=== PATIENT | female | born 1955 | race Caucasian/White ===

== ENCOUNTER 2021-08-28 08:25 | Emergency (ER) | payer OTHER ==
[~2021-08-28] VITALS: Ht 160 cm; Wt 70.3 kg
[2021-08-28 09:05] VITALS: BP 149/83
[2021-08-28 10:02] LABS: Urine Bacteria NONE SEEN /hpf (None Seen); Urine Blood Negative /uL (Negative); Urine Mucus FEW (None Seen); Urine Specific Gravity 1.027 (1.001-1.035); Urine WBC 1 /hpf (0 - 5)
[2021-08-28 10:07] LABS: Amphetamine Screen, Urine NEGATIVE (NEGATIVE); Barbiturate Scree,Urine NEGATIVE (NEGATIVE); Benzodiazephine Screen, Urine NEGATIVE (NEGATIVE); Cannabinoid Screen, Urine NEGATIVE (NEGATIVE); Cocaine Screen, Urine NEGATIVE (NEGATIVE); Opiate Scree,Urine NEGATIVE (NEGATIVE); Phencyclidine Screen, Urine NEGATIVE (NEGATIVE)
[2021-08-28 10:10] LABS: Basophils # (auto) 0.1 10 ^3/uL (0-0.2); Basophils % (auto) 0.8 % (0.0-2.0); Eosinophils # (auto) 0 10 ^3/uL (0-0.8); Eosinophils % (auto) 0.2 % (0.0-7.0); Hematocrit 40.9 % (36.0-46.0); Hemoglobin 14.2 g/dL (12.2-16.2); Lymphocytes # (auto) 1.4 10 ^3/uL (0.4-5.4); Lymphocytes % (auto) 20.4 % (10.0-50.0); Mean Corpuscular Hemoglobin 31.9 pg (28.0-32.0); Mean Corpuscular Hgb Conc. 34.7 g/dL (32.0-36.0); Mean Corpuscular Volume 91.7 fL (80.0-100.0); Monocytes # (auto) 0.6 10 ^3/uL (0-1.3); Monocytes % (auto) 8.3 % (0.0-12.0); Neutrophils % (auto) 70.3 % (37.0-80.0); Nucleated Red Blood Cells % 0.1 %; Red Blood Cells 4.46 10^6/uL (4.0-5.20); Red Cell Distribution Width 13.6 % (11.8-14.3)
[2021-08-28 10:19] LABS: Albumin 3.9 g/dL (3.4-5.0); Calcium 9.1 mg/dL (8.5-10.1); Magnesium 2.4 mg/dL (1.6-2.6); Potassium 3.7 mmol/L (3.5-5.1)
[2021-08-28 10:24] LABS: BUN/Creatinine Ratio 13.4; Bilirubin, Total 0.5 mg/dL (0.2-1.0); Total Protein 7.4 g/dL (6.4-8.2)
[2021-08-28 10:35] LABS: Acetaminophen < 2.0 ug/mL (10-30); Salicylate < 1.7 mg/dL (2.8-20.0)
[2021-08-28] MEDS ORDERED: ALPRAZolam 0.5 MG TAB PO ONE (11:00)
== END 2021-08-28 18:31 | disposition home or self-care (01) ==
LOC: ER 08:25
DX: F32.9 Major depressive disorder, single episode, unspecified (principal); F41.1 Generalized anxiety disorder; F43.0 Acute stress reaction; I10 Essential (primary) hypertension; Z87.39 Personal history of other diseases of the musculoskeletal system and connective tissue; Z90.710 Acquired absence of both cervix and uterus
CPT/HCPCS: 36415; 71046; 80053; 80307; 80329; 81001; 83735; 84443; 85025; 93005

== ENCOUNTER → 2021-11-05 | Outpatient (CLI) | payer OTHER | END | disposition home or self-care (01) | LOC: XYW 13:14 | PROVIDERS: ATTEND Internal Medicine | DX: R42 Dizziness and giddiness (principal) | CPT/HCPCS: 93306 ==

== ENCOUNTER → 2021-11-05 | Outpatient (CLI) | payer OTHER | END | disposition home or self-care (01) | LOC: LAB 10:06 | PROVIDERS: ATTEND Internal Medicine | DX: Z12.11 Encounter for screening for malignant neoplasm of colon (principal) | CPT/HCPCS: 82270 ==

== ENCOUNTER → 2021-11-07 | Outpatient (CLI) | payer OTHER | END | disposition home or self-care (01) | LOC: XY 09:21 | PROVIDERS: ATTEND Internal Medicine | DX: I77.89 Other specified disorders of arteries and arterioles (principal); R42 Dizziness and giddiness | CPT/HCPCS: 93886 ==

== ENCOUNTER → 2021-11-22 | Outpatient (CLI) | payer OTHER | END | disposition home or self-care (01) | LOC: LAB 09:43 | PROVIDERS: ATTEND Internal Medicine | DX: E78.5 Hyperlipidemia, unspecified (principal); M06.9 Rheumatoid arthritis, unspecified; G62.9 Polyneuropathy, unspecified | CPT/HCPCS: 36415; 83036; 84443 ==

== ENCOUNTER → 2023-05-25 | Outpatient (CLI) | payer OTHER ==
[2023-05-25 12:05] LABS: Erythrocyte Sedimentation Rate 8 mm/hr (0-20)
[2023-05-25 12:15] LABS: CRP High Sensitivity 0.11 mg/dL (<1.0)
== END | disposition home or self-care (01) ==
LOC: LAB 11:14
PROVIDERS: ATTEND Internal Medicine
DX: M06.9 Rheumatoid arthritis, unspecified (principal); E78.5 Hyperlipidemia, unspecified
CPT/HCPCS: 36415; 80061; 82550; 84443; 85652; 86141

== ENCOUNTER → 2023-05-25 | Outpatient (CLI) | payer OTHER | END | disposition home or self-care (01) | LOC: XYW 10:20 | PROVIDERS: ATTEND Internal Medicine | DX: R42 Dizziness and giddiness (principal); R25.1 Tremor, unspecified; I51.89 Other ill-defined heart diseases | CPT/HCPCS: 93306; 93886 ==

== ENCOUNTER 2024-07-15 19:34 | Emergency (ER) | payer OTHER ==
[~2024-07-15] VITALS: Ht 160 cm; Wt 77.2 kg
--- NOTE | 2024-07-15 19:46 | ED.PDOC ---
History of Present Illness HPI Comments 69-year-old female who came to emergency room via EMS for fall injury. Patient has history of rheumatoid arthritis, in has been having progressive weakness her legs for the past few weeks. Has been having recurrent falls recently. Fell again earlier today. Patient denies any pain at this time. States leg weakness has progressively worsened. Patient has not seen her crew attendant for over two years. Patient was tachycardic and tachypneic at arrival. Chief Complaint: Fall injury Time Seen by MD: 19:45 Primary Care Provider: none Reviewed Notes: Nurses Notes, [employer] Salesperson Notes Allergies: Coded Allergies: Penicillins (Verified Allergy, Unknown, 08/28/21) Information Source: Patient, Emergency Med Personnel Mode of Arrival: EMS Severity: Moderate Timing: Hours Duration: Since onset Prehospital treatment: None Past Medical History PAST MEDICAL HISTORY: Arthritis (Rheumatoid), HTN Surgical History: Hysterectomy FOOD BEVERAGE ATTENDANT History: No Pertinent FOOD BEVERAGE ATTENDANT History Family History Family History: Unknown Social History Smoker: Non-Smoker Alcohol: Denies ETOH Use Drugs: Denies Drug Use Lives In: Home Constitutional: reports: fatigue, weakness; denies: chills, diaphoresis, fever, malaise, sweats, others EENTM: denies: blurred vision, double vision, ear bleeding, ear discharge, ear drainage, ear pain, ear ringing, eye pain, eye redness, hearing loss, mouth pain, mouth swelling, nasal discharge, nose bleeding, nose congestion, nose pain, photophobia, tearing, throat pain, throat swelling, voice changes, others Respiratory: denies: cough, hemoptysis, orthopnea, SOB at rest, shortness of breath, SOB with excertion, stridor, wheezing, others Cardiovascular: denies: chest pain, dizzy spells, diaphoresis, Dyspnea on exertion, edema, irregular heart beat, left arm pain, lightheadedness, palpitations, PND, syncope, others Gastrointestinal: denies: abdomen distended, abdominal pain, blood streaked bowels, constipated, diarrhea, dysphagia, difficulty swallowing, hematemesis, melena, nausea, poor appetite, poor fluid intake, rectal bleeding, rectal pain, vomiting, others Genitourinary: denies: abnormal vagina bleeding, burning, dyspareunia, dysuria, flank pain, frequency, hematuria, incontinence, pain, , vagina discharge, urgency, others Neurological: reports: tremors, weakness; denies: dizziness, fainting, headache, left sided numbness, left sided weakness, numbness, paresthesia, pre- existing deficit, right sided numbness, right sided weakness, seizure, speech problems, tingling, others Musculoskeletal: denies: back pain, gout, joint pain, joint swelling, muscle pain, muscle stiffness, neck pain, others Integumetry: denies: bruises, change in color, change in hair/nails, dryness, laceration, lesions, lumps, rash, wounds, others Allergic/Immunocompromised: denies: Difficulty Healing, Frequent Infections, Hives, Itching, others Hematologic/Lymphatic: denies: anemia, blood clots, easy bleeding, easy bruising, swollen glands, others Endocrine: denies: excessive hunger, excessive sweating, excessive thirst, excessive urination, flushing, intolerance to cold, intolerance to heat, unexplained weight gain, unexplained weight loss, others Psychiatric: denies: anxiety, bipolar disorder, depression, hopeless, panic disorder, schizophrenia, sleepless, suicidal, others Physical Exam General Appearance: Moderate Distress (Moderate distress due to weakness concerns.), Obese HEENT: Normal ENT Inspection, Pharynx Normal, TMs Normal Neck: Full Range of Motion, Non-Tender, Normal, Normal Inspection Respiratory: Chest Non-Tender, Lungs Clear, No Accessory Muscle Use, No Respiratory Distress, Normal Breath Sounds Cardiovascular: No Edema, No JVD, No Murmur, No Gallop, Normal Peripheral Pulses, Regular Rate/Rhythm Breast Exam: Deferred Gastrointestinal: No Organomegaly, Non Tender, No Pulsatile Mass, Normal Bowel Sounds, Soft Genitalia: Deferred Pelvic: Deferred Rectal: Deferred Extremities: No calf tenderness, Normal capillary refill, Normal range of motion, Non-tender, No pedal edema Musculoskeletal : Apperance: Normal Neurologic: Alert, No Motor Deficits, Normal Affect, Normal Mood, No Sensory Deficits Cerebellar Function: Normal Reflexes: Normal Skin: Dry, Normal Color, Warm Lymphatic: No Adenopathy Was a procedure done? Was a procedure done?: No Differential Dx Considerations may include: Anemia, electrolyte imbalance, weakness, rheumatoid arthritis, fall injury X-Ray, Labs, Meds, VS Vital Signs Date Time Temp Pulse Resp B/P (MAP) Pulse Ox O2 Delivery O2 Flow Rate FiO2 07/15/24 21:19 100.0 1/10/25 21:00 108 22 142/67 (92) 95 07/15/24 20:30 100 07/15/24 20:15 100.0 102 22 161/75 (103) 100 100.0 07/15/24 20:15 100 22 94 Room Air* 0 21 07/15/24 20:02 106 07/15/24 19:34 99.1 121 22 143/75 (97) 94 Lab Test 07/15/24 21:52 07/15/24 21:15 07/15/24 19:55 Range/Units Lactic Acid Level 1.8 2.6 *H 0.4-2.0 mmol/L Urine Color Yellow Yellow Urine Clarity Clear Clear Urine pH 5.5 5.0-9.0 Urine Specific [place] 1.031 1.001-1.035 Urine Protein Trace H Negative Urine Ketones Negative Negative Urine Blood Negative Negative /uL Urine Nitrite Negative Negative Urine Bilirubin Negative Negative Urine Urobilinogen Normal Negative mg/dL Urine Leukocyte Esterase Negative Negative /uL Urine RBC 2 0 - 4 /hpf Urine WBC 4 0 - 5 /hpf Urine Squamous Epithelial Cells Few <5 /hpf Urine Bacteria None seen None Seen /hpf Urine Hyaline Casts Few 0 - 2 /lpf Urine Mucus Few None Seen Urine Glucose Normal Normal mg/dL White Blood Count 9.1 4.4-10.8 10^3/uL Red Blood Count 4.37 4.0-5.20 10^6/uL Hemoglobin 13.9 12.2-16.2 g/dL Hematocrit 40.1 36.0-46.0 % Mean Corpuscular Volume 91.7 80.0-100.0 fL Mean Corpuscular Hemoglobin 31.8 28.0-32.0 pg Mean Corpuscular Hemoglobin Concent 34.7 32.0-36.0 g/dL Red Cell Distribution Width 13.5 11.8-14.3 % Platelet Count 211 140-450 10^3/uL Mean Platelet Volume 8.2 6.9-10.8 fL Neutrophils (%) (Auto) 84.0 H 37.0-80.0 % Lymphocytes (%) (Auto) 4.1 L 10.0-50.0 % Monocytes (%) (Auto) 11.2 0.0-12.0 % Eosinophils (%) (Auto) 0.4 0.0-7.0 % Basophils (%) (Auto) 0.3 0.0-2.0 % Neutrophils # (Auto) 7.7 1.6-8.6 10 ^3/uL Lymphocytes # (Auto) 0.4 0.4-5.4 10 ^3/uL Monocytes # (Auto) 1.0 0-1.3 10 ^3/uL Eosinophils # (Auto) 0 0-0.8 10 ^3/uL Basophils # (Auto) 0 0-0.2 10 ^3/uL Nucleated Red Blood Cells 0.0 % Sodium Level 143 136-145 mmol/L Potassium Level 3.9 3.5-5.1 mmol/L Chloride Level 109 H 98-107 mmol/L Carbon Dioxide Level 24 20-31 mmol/L Anion Gap 10 5-15 Blood Urea Nitrogen 17 9-23 mg/dL Creatinine 1.01 0.550-1.02 mg/dL Glomerular Filtration Rate Calc 61 >90 mL/min BUN/Creatinine Ratio 16.8 10.0-20.0 Serum Glucose 126 H 74-106 mg/dL Calcium Level 9.3 8.7-10.4 mg/dL Total Bilirubin 0.4 0.2-1.0 mg/dL Aspartate Amino Transferase (AST) 33 13-40 U/L Alanine Aminotransferase (ALT) 39 7-40 U/L Alkaline Phosphatase 70 46-116 U/L Troponin I High Sensitivity 3 L </=34 ng/L Total Protein 6.5 5.7-8.2 g/dL Albumin 4.2 3.2-4.8 g/dL Current Medications Medications (Trade) Dose Ordered Sig/Jean Route Start Time Stop Time Status Last Admin Sodium Chloride 1,000 ml @ 1,000 mls/hr Q1H ONCE IV 07/15/24 21:00 07/15/24 21:59 DC 07/15/24 21:19 Acetaminophen (Tylenol Tablet) 1,000 mg ONCE ONCE PO 07/15/24 21:00 07/15/24 21:01 DC 07/15/24 21:19 X-Ray, Labs, Meds, VS Comment All studies performed the ED today were evaluated by me personally. Serum and urine results were unremarkable for any acute systemic process or Cardiology concern. EKG showed a sinus tachycardia with a rate of 106. [place] interval 149 and QT interval of 335. Unremarkable EKG. Spent time discussing the patient's concerns with her. Patient does live alone and therefore, I was contemplating0 admitting the patient for a transfer to a retirement facility0. Patient states that she has pets at home and therefore, would prefer being discharged and following up with her primary care provider. Advised patient that she does need to talk to her crew attendant this for assistance with her RA that seems to be causing weakness. Time of 1ST Reevaluation: 23:08 Reevaluation 1ST: Improved Consultation: PCP, Other (Rheumatology) Patient Education/Counseling: Diagnosis, Treatment Family Education/Counseling: Diagnosis, Treatment, No Family Present Departure 1 Departure Time of Disposition: 23:09 Impression: Primary Impression: Weakness generalized Disposition: 01 HOME / SELF CARE / HOMELESS Condition: Stable Additional Instructions: Advised patient follow up with primary care provider and crew attendant his for conversation is related to the weakness that the patient is experiencing what she believes is related to her rheumatoid arthritis. Discharged With: Self, Friend Critical Care Note Critical Care Time?: No Stability Stability form required: No Heart Score Heart Score: Heart Score Response (Comments) Value History Slightly Suspicious 0 EKG Normal 0 Age >65 2 Risk Factors 1 or 2 risk factors 1 Troponin Normal limit 0 Total 3 I personally scribed for CECI PAEZ PAC ([email or web address]) on 07/15/24 at 19:46. Electronically submitted by Dewayne Tellez ([facility]). CECI PAEZ PAC Jul 15, 2024 19:46
[2024-07-15 20:15] VITALS: PULSE 100; RESP 22; O2SAT 94
[2024-07-15 20:27] LABS: Basophils # (auto) 0 10 ^3/uL (0-0.2); Basophils % (auto) 0.3 % (0.0-2.0); Eosinophils # (auto) 0 10 ^3/uL (0-0.8); Eosinophils % (auto) 0.4 % (0.0-7.0); Hematocrit 40.1 % (36.0-46.0); Hemoglobin 13.9 g/dL (12.2-16.2); Lymphocytes # (auto) 0.4 10 ^3/uL (0.4-5.4); Lymphocytes % (auto) 4.1 % (10.0-50.0); Mean Corpuscular Hemoglobin 31.8 pg (28.0-32.0); Mean Corpuscular Hgb Conc. 34.7 g/dL (32.0-36.0); Mean Corpuscular Volume 91.7 fL (80.0-100.0); Monocytes % (auto) 11.2 % (0.0-12.0); Neutrophils # (auto) 7.7 10 ^3/uL (1.6-8.6); Platelet Count (auto) 211 10^3/uL (140-450); Red Blood Cells 4.37 10^6/uL (4.0-5.20); Red Cell Distribution Width 13.5 % (11.8-14.3); White Blood Cell 9.1 10^3/uL (4.4-10.8)
[2024-07-15 20:46] LABS: Alanine Aminotransferase 39 U/L (7-40); Albumin 4.2 g/dL (3.2-4.8); Alkaline Phosphatase 70 U/L (46-116); Anion Gap 10 (5-15); Aspartate Aminotransferase 33 U/L (13-40); BUN/Creatinine Ratio 16.8 (10.0-20.0); Blood Urea Nitrogen 17 mg/dL (9-23); Calcium 9.3 mg/dL (8.7-10.4); Carbon Dioxide 24 mmol/L (20-31); Potassium 3.9 mmol/L (3.5-5.1); Sodium 143 mmol/L (136-145)
[2024-07-15 20:47] LABS: Bilirubin, Total 0.4 mg/dL (0.2-1.0); Total Protein 6.5 g/dL (5.7-8.2)
--- NOTE | 2024-07-15 20:47 | ECG ---
[facility] Test Date: 2024-07-15 Test Time: 20:02:52 Pat Name: CLARISA DOWNING Department: ER Room: Gender: F Employee Benefits Director: : 1955 Requested By: CECI PAEZ Order Number: [id number] Reading MD: Ezekiel Nguyen Measurements Intervals [place] Rate: 106 P: 67 MA: 149 QRS: 57 QRSD: 97 T: 35 QT: 335 QTc: 445 Interpretive Statements Sinus tachycardia Electronically Signed On 07-24-2024 14:31:26 PST by Ezekiel Nguyen Please click the below link to view image of tracing.
[2024-07-15 20:49] LABS: Lactic Acid w/Reflex 2.6 mmol/L (0.4-2.0)
[2024-07-15 20:52] LABS: Chloride 109 mmol/L (98-107); Glucose 126 mg/dL (74-106)
[2024-07-15 21:19] VITALS: TEMP 100
[2024-07-15] MEDS: ACETAMINOPHEN 325 MG TAB PO ONE (21:19)
[2024-07-15] MEDS: SODIUM CHLORIDE 0.9% 1,000 ML IV ONE (21:19)
[2024-07-15 21:29] LABS: Urine Bacteria None Seen /hpf (None Seen)
[2024-07-15 21:41] LABS: Urine Blood Negative /uL (Negative); Urine Clarity Clear (Clear); Urine Color Yellow (Yellow); Urine Hyaline Cast FEW /lpf (0 - 2); Urine Mucus FEW (None Seen); Urine Protein, UAD TRACE (Negative); Urine Specific Gravity 1.031 (1.001-1.035); Urine Squamous Epithelial Cell FEW /hpf (<5); Urine Urobilinogen Normal (Negative); Urine WBC 4 /hpf (0 - 5); Urine pH 5.5 (5.0-9.0)
[2024-07-15 23:17] VITALS: BP 131/65; PULSE 93; RESP 15; O2SAT 93
== END 2024-07-15 23:42 | disposition home or self-care (01) ==
LOC: EDBD 19:34 → ER 19:34 → EDUNIT# 19:34 → ER 23:42
DX: R53.1 Weakness (principal); I10 Essential (primary) hypertension; M06.9 Rheumatoid arthritis, unspecified; Z88.0 Allergy status to penicillin; Z90.710 Acquired absence of both cervix and uterus; W18.09XA Striking against other object with subsequent fall, initial encounter; Y93.89 Activity, other specified; Y92.89 Other specified places as the place of occurrence of the external cause; Y99.8 Other external cause status
CPT/HCPCS: 36415; 80053; 81001; 83605; 84484; 85025; 93005; 96360; 99285; J7030

== ENCOUNTER 2024-07-16 16:08 | Inpatient (IN) | payer OTHER ==
[~2024-07-16] VITALS: Ht 160 cm; Wt 86.9 kg
[2024-07-16] MEDS: SODIUM CHLORIDE 0.9% 1,000 ML IV ONE (16:30)
--- NOTE | 2024-07-16 16:51 | ED.PDOC ---
History of Present Illness HPI Comments This patient was seen by me yesterday for same complaints. Patient did not want to be admitted at that time due to PET concerns at home as she did not have any assistance. 69 y/o F is BIBA for c/o bilateral leg weakness, today. Per EMS report, patient has history of rheumatoid arthritis and has been having progressive weakness in her legs for the past few weeks, with associated recurrent falls, recently. States leg weakness has progressively worsened. Patient has not seen her outreach manager for over two years. Patient also complains of flu-like symptoms, that include cough and pressure-like headache and facial pain for the past 3-4x days. Patient was tachycardic and hypertensive at arrival to ED. Patient lives alone. Chief Complaint: General Weakness Time Seen by MD: 16:20 Primary Care Provider: SHILPA Reviewed Notes: Nurses Notes, Costume Cutter Notes, Medications, Allergies Allergies: Coded Allergies: Penicillins (Verified Allergy, Unknown, 08/28/21) Information Source: Patient, Emergency Med Personnel Mode of Arrival: EMS Severity: Moderate Timing: Days Duration: Since onset Prehospital treatment: 12 Lead EKG, Retail Assistant Manager Past Medical History PAST MEDICAL HISTORY: Arthritis, HTN Past Medical History (Other): Rheumatoid arthritis Surgical History: Hysterectomy COMMUNITY RELATIONS ADVISOR History: No Pertinent COMMUNITY RELATIONS ADVISOR History Family History Family History: Unknown Social History Smoker: Non-Smoker Alcohol: Denies ETOH Use Drugs: Denies Drug Use Lives In: Home Constitutional: reports: fatigue, malaise, weakness; denies: chills, bryson phoresis, fever, sweats, others EENTM: reports: others (facial pain ); denies: blurred vision, double vision, ear bleeding, ear discharge, ear drainage, ear pain, ear ringing, eye pain, eye redness, hearing loss, mouth pain, mouth swelling, nasal discharge, nose bleeding, nose congestion, nose pain, photophobia, tearing, throat pain, throat swelling, voice changes Respiratory: reports: cough; denies: hemoptysis, orthopnea, SOB at rest, shortness of breath, SOB with excertion, stridor, wheezing, others Cardiovascular: denies: chest pain, dizzy spells, diaphoresis, Dyspnea on exertion, edema, irregular heart beat, left arm pain, lightheadedness, palpitat ions, PND, syncope, others Gastrointestinal: denies: abdomen distended, abdominal pain, blood streaked bow els, constipated, diarrhea, dysphagia, difficulty swallowing, hematemesis, melena, nausea, poor appetite, poor fluid intake, rectal bleeding, rectal pain, vomiting, others Genitourinary: denies: abnormal vagina bleeding, burning, dyspareunia, dysuria, flank pain, frequency, hematuria, incontinence, pain, , vagina discharge, urgency, others Neurological: reports: headache, weakness (bilateral legs ); denies: dizziness, fainting, left sided numbness, left sided weakness, numbness, paresthesia, pre- existing deficit, right sided numbness, right sided weakness, seizure, speech problems, tingling, tremors, others Musculoskeletal: denies: back pain, gout, joint pain, joint swelling, muscle pain, muscle stiffness, neck pain, others Integumetry: denies: bruises, change in color, change in hair/nails, dryness, laceration, lesions, lumps, rash, wounds, others Allergic/Immunocompromised: denies: Difficulty Healing, Frequent Infections, Hives, Itching, others Hematologic/Lymphatic: denies: anemia, blood clots, easy bleeding, easy bruising, swollen glands, others Endocrine: denies: excessive hunger, excessive sweating, excessive thirst, excessive urination, flushing, intolerance to cold, intolerance to heat, unexplained weight gain, unexplained weight loss, others Psychiatric: denies: anxiety, bipolar disorder, depression, hopeless, panic disorder, schizophrenia, sleepless, suicidal, others All Other Systems: Reviewed and Negative (negative unless otherwise stated above or in HPI) Physical Exam General Appearance: Moderate Distress (Due to generalized weakness concerns.), Normal HEENT: Normal ENT Inspection, Pharynx Normal, TMs Normal Neck: Full Range of Motion, Non-Tender, Normal, Normal Inspection Respiratory: Chest Non-Tender, Lungs Clear, No Accessory Muscle Use, No Respiratory Distress, Normal Breath Sounds Cardiovascular: No Edema, No JVD, No Murmur, No Gallop, Normal Peripheral Pulses, Regular Rate/Rhythm Breast Exam: Deferred Gastrointestinal: No Organomegaly, Non Tender, No Pulsatile Mass, Normal Bowel Sounds, Soft Genitalia: Deferred Pelvic: Deferred Rectal: Deferred Extremities: No calf tenderness, Normal capillary refill, No pedal edema Neurologic: Alert, Normal Affect Cerebellar Function: Normal Reflexes: NOT DONE Skin: Dry, Normal Color, Warm Lymphatic: No Adenopathy Was a procedure done? Was a procedure done?: No Differential Dx Considerations may include: Anemia, electrolyte imbalance, weakness, rheumatoid arthritis, fall injury X-Ray, Labs, Meds, VS Vital Signs Date Time Temp Pulse Resp B/P (MAP) Pulse Ox O2 Delivery O2 Flow Rate FiO2 07/16/24 16:27 98.7 90 14 141/91 (108) 95 07/16/24 16:21 84 Lab Test 07/16/24 16:18 Range/Units White Blood Count 7.1 4.4-10.8 10^3/uL Red Blood Count 4.65 4.0-5.20 10^6/uL Hemoglobin 14.5 12.2-16.2 g/dL Hematocrit 42.5 36.0-46.0 % Mean Corpuscular Volume 91.4 80.0-100.0 fL Mean Corpuscular Hemoglobin 31.2 28.0-32.0 pg Mean Corpuscular Hemoglobin Concent 34.2 32.0-36.0 g/dL Red Cell Distribution Width 13.9 11.8-14.3 % Platelet Count 203 140-450 10^3/uL Mean Platelet Volume 8.2 6.9-10.8 fL Neutrophils (%) (Auto) 71.5 37.0-80.0 % Lymphocytes (%) (Auto) 12.5 10.0-50.0 % Monocytes (%) (Auto) 15.5 H 0.0-12.0 % Eosinophils (%) (Auto) 0.0 0.0-7.0 % Basophils (%) (Auto) 0.5 0.0-2.0 % Neutrophils # (Auto) 5.0 1.6-8.6 10 ^3/uL Lymphocytes # (Auto) 0.9 0.4-5.4 10 ^3/uL Monocytes # (Auto) 1.1 0-1.3 10 ^3/uL Eosinophils # (Auto) 0 0-0.8 10 ^3/uL Basophils # (Auto) 0 0-0.2 10 ^3/uL Nucleated Red Blood Cells 0.1 % Sodium Level 142 136-145 mmol/L Potassium Level 3.7 3.5-5.1 mmol/L Chloride Level 108 H 98-107 mmol/L Carbon Dioxide Level 25 20-31 mmol/L Anion Gap 9 5-15 Blood Urea Nitrogen 10 9-23 mg/dL Creatinine 0.99 0.550-1.02 mg/dL Glomerular Filtration Rate Calc 62 >90 mL/min BUN/Creatinine Ratio 10.1 10.0-20.0 Serum Glucose 98 74-106 mg/dL Calcium Level 9.7 8.7-10.4 mg/dL Troponin I High Sensitivity 36 *H </=34 ng/L B-Type Natriuretic Peptide 77.44 0-100 pg/mL X-Ray, Labs, Meds, VS Comment All studies performed the ED were evaluated by me personally. Urinalysis was pending at time of this note. Imaging studies were unremarkable for any intrapulmonary process. No consolidation is noted. Serum laboratories were unremarkable for any definitive systemic processes. EKG revealed a sinus rhythm with a rate of 84. [place] interval of 153 and QT intervals 363. 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 Patient will be admitted for general weakness and fall concerns. Patient should be transferred to a retirement facility for rehab. Time of 1ST Reevaluation: 21:46 Reevaluation 1ST: Unchanged Consultation: PCP, Other (Rheumatology) Patient Education/Counseling: Diagnosis, Treatment Family Education/Counseling: Diagnosis, Treatment, No Family Present Departure 1 Departure Time of Disposition: 21:47 Impression: Primary Impression: Weakness generalized Additional Impression: Risk for falls Disposition: ADMITTED INPATIENT Condition: Stable Discharged With: Self Critical Care Note Critical Care Time?: No Stability Stability form required: No Heart Score Heart Score: Heart Score Response (Comments) Value History Slightly Suspicious 0 EKG Normal 0 Age >65 2 Risk Factors 1 or 2 risk factors 1 Troponin 1-2 x's Normal limit 1 Total 4 I personally scribed for CECI PAEZ PAC ([email or web address]) on 07/16/24 at 16:51. Electronically submitted by Dane Avalos ([email or web address]). CECI PAEZ PAC Jul 16, 2024 16:51
[2024-07-16 17:09] LABS: Basophils # (auto) 0 10 ^3/uL (0-0.2); Basophils % (auto) 0.5 % (0.0-2.0); Eosinophils # (auto) 0 10 ^3/uL (0-0.8); Hematocrit 42.5 % (36.0-46.0); Hemoglobin 14.5 g/dL (12.2-16.2); Lymphocytes # (auto) 0.9 10 ^3/uL (0.4-5.4); Lymphocytes % (auto) 12.5 % (10.0-50.0); Mean Corpuscular Hemoglobin 31.2 pg (28.0-32.0); Mean Corpuscular Hgb Conc. 34.2 g/dL (32.0-36.0); Mean Corpuscular Volume 91.4 fL (80.0-100.0); Monocytes # (auto) 1.1 10 ^3/uL (0-1.3); Monocytes % (auto) 15.5 % (0.0-12.0); Neutrophils % (auto) 71.5 % (37.0-80.0); Nucleated Red Blood Cells % 0.1 %; Platelet Count (auto) 203 10^3/uL (140-450); Red Blood Cells 4.65 10^6/uL (4.0-5.20); Red Cell Distribution Width 13.9 % (11.8-14.3); White Blood Cell 7.1 10^3/uL (4.4-10.8)
[2024-07-16 17:18] LABS: Potassium 3.7 mmol/L (3.5-5.1); Sodium 142 mmol/L (136-145)
[2024-07-16 17:19] LABS: Anion Gap 9 (5-15); Calcium 9.7 mg/dL (8.7-10.4); Carbon Dioxide 25 mmol/L (20-31)
[2024-07-16 17:21] LABS: Chloride 108 mmol/L (98-107)
[2024-07-16 17:24] LABS: BUN/Creatinine Ratio 10.1 (10.0-20.0); Blood Urea Nitrogen 10 mg/dL (9-23); Glucose 98 mg/dL (74-106)
--- NOTE | 2024-07-16 17:34 | DVH ---
CHEST RADIOGRAPH Indication: Shortness a breath Technique: Single frontal view of the chest was obtained Comparison: None FINDINGS: Lines and Tubes: None Lungs: No focal consolidation. Pleura: No effusion. No pneumothorax. Cardiomediastinal contours: Unremarkable Bones: No acute osseous abnormality. IMPRESSION: No acute cardiopulmonary disease.
--- NOTE | 2024-07-16 20:50 | ECG ---
[facility] Test Date: 2024-07-16 Test Time: 16:21:32 Pat Name: CLARISA DOWNING Department: er Room: Gender: F Lap Machine Tender: adrián : 1955 Requested By: CECI PAEZ Order Number: [id number] Reading MD: Measurements Intervals [place] Rate: 84 P: 62 IN: 153 QRS: 61 QRSD: 93 T: 32 QT: 363 QTc: 430 Interpretive Statements Sinus rhythm Inferior infarct, old Please click the below link to view image of tracing.
[2024-07-16] MEDS ORDERED: ACETAMINOPHEN 325 MG TAB PO PRN (23:00)
[2024-07-16] MEDS ORDERED: ONDANSETRON HCL 4 MG/2 ML VIAL IV PRN (23:00)
[2024-07-16] MEDS ORDERED: DOCUSATE SOD 100 MG CAP PO PRN (23:00)
[2024-07-16] MEDS ORDERED: MORPHINE SULFATE INJ 2 MG/ml SYRG IV PRN (23:00)
[2024-07-16] MEDS: SODIUM CHLORIDE 0.9% 1,000 ML IV SCH (23:00)
[2024-07-17] MEDS: ASPirin 81 mg TAB PO ONE (00:19)
--- NOTE | 2024-07-17 01:35 | DVHHP2 ---
History of Present Illness Reason for Visit: Weakness generalized History of Present Illness The patient is a 69-year-old female with past medical history of rheumatoid arthritis and hypertension who presented to [facility] ED for evaluation of generalized weakness. Patient reports symptoms progressively get worse with flu-like symptoms, facial pain, headache, cough, progressive weakness in her legs, getting worse that prompted this visit. Patient was seen and evaluated in the ED, laboratory data shows WBC 7.1, platelets 203, sodium 142, potassium 3.7, BUN 10, creatinine 0.99, GFR 62, glucose 98, BNP 77.44, troponin 36. Chest x-ray show no acute cardiopulmonary disease. Patient was given aspirin 162 mg p.o. x1, please see medication orders section in the computer. On my assessment, patient denies chest pain, no headache, no dizziness, no diaphoresis, no shortness of breaths, no nausea, no vomiting, no fever, no chills. Patient was admitted for further evaluation and medical management. Past Medical History Hypertension, Rheumatoid arthritis Past Surgical History Hysterectomy Family History Reviewed, noncontributory to the management of this case. Past Social History The patient lives at home, denies smoking, alcohol or illicit drugs abuse. Review of Systems Constitutional: Yes: Weakness, Malaise, Other (Fatigue); No: Fever, Chills, Sweats Eyes: No: Pain, Vision change, Conjunctivae inflammation, Eyelid inflammation, Other, Redness ENT: No: Ear pain, Ear discharge, Nose pain, Nose discharge, Nose congestion, Mouth pain, Mouth swelling, Throat pain, Throat swelling, Other Respiratory: Cough; No: Dry, Shortness of breath, SOB with excertion, Wheezing, Hemoptysis, Pleuritic Pain, Sputum, Wheezing, Other Cardiovascular: No: Chest Pain, Palpitations, Orthopnea, Paroxysmal Noc. Dyspnea, Edema, Lt Headedness, Other Gastrointestinal: No: Nausea, Vomiting, Abdominal Pain, Diarrhea, Constipation, Melena, Hematochezia, Other Genitourinary: No Dysuria, No Frequency, No Incontinence, No Hematuria, No Retention, No Other Musculoskeletal: No: other, neck pain, shoulder pain, arm pain, back pain, hand pain, leg pain, foot pain Skin: No: Rash, Lesions, Jaundice, Bruising, Other Neurological: Weakness, Other (Dizziness); No: Numbness, Incoordination, Change in speech, Confusion, Seizures Allergies: Coded Allergies: Penicillins (Verified Allergy, Unknown, 08/28/21) Medications Current Medications Medications Dose Ordered Sig/Jean Route Start Time Stop Time Status Last Admin Dose Admin Aspirin 81 mg DAILY PO 07/17/24 10:00 Sodium Chloride 1,000 ml @ 60 mls/hr [id number] IV 07/16/24 23:00 Acetaminophen/ Hydrocodone Bitart 1 tab Q4HP PRN PO 07/16/24 23:00 Ondansetron HCl 4 mg Q4HP PRN IV 07/16/24 23:00 Docusate Sodium 100 mg BIDPRN PRN PO 07/16/24 23:00 Acetaminophen 650 mg Q6HP PRN PO 07/16/24 23:00 Morphine Sulfate 2 mg Q4HPRN PRN IV 07/16/24 23:00 Exam Vital Signs Vital Signs Date Time Temp Pulse Resp B/P (MAP) Pulse Ox O2 Delivery O2 Flow Rate FiO2 07/17/24 00:14 98.9 99 20 158/69 (98) 92 98.9 07/17/24 00:14 Room Air General Appearance: Alert, Oriented X3, Cooperative, No acute distress HEENT: Atraumatic, PERRLA, EOMI, Mucous membr. moist/pink Respiratory: Clear to auscultation, Normal air movement Cardiovascular: Regular rate, Normal S1, Normal S2, No murmurs Abdominal: Normal bowel sounds, Soft, No tenderness, No hepatospenomegaly, No masses Extremities: No clubbing, No cyanosis, No edema, Normal pulses, No tenderness/swelling Skin: No rashes, No breakdown, No significant lesion Neuro: Normal speech, Normal tone, Sensation intact, Cranial nerves 3-12 NL, Reflexes 2+, Other (Generalized weakness) Psych/Mental Status: Mental status NL, Mood NL Labs/Xrays Labs Test 07/17/24 00:35 07/16/24 16:18 Range/Units Troponin I High Sensitivity 27 </=34 ng/L White Blood Count 7.1 4.4-10.8 10^3/uL Red Blood Count 4.65 4.0-5.20 10^6/uL Hemoglobin 14.5 12.2-16.2 g/dL Hematocrit 42.5 36.0-46.0 % Mean Corpuscular Volume 91.4 80.0-100.0 fL Mean Corpuscular Hemoglobin 31.2 28.0-32.0 pg Mean Corpuscular Hemoglobin Concent 34.2 32.0-36.0 g/dL Red Cell Distribution Width 13.9 11.8-14.3 % Platelet Count 203 140-450 10^3/uL Mean Platelet Volume 8.2 6.9-10.8 fL Neutrophils (%) (Auto) 71.5 37.0-80.0 % Lymphocytes (%) (Auto) 12.5 10.0-50.0 % Monocytes (%) (Auto) 15.5 H 0.0-12.0 % Eosinophils (%) (Auto) 0.0 0.0-7.0 % Basophils (%) (Auto) 0.5 0.0-2.0 % Neutrophils # (Auto) 5.0 1.6-8.6 10 ^3/uL Lymphocytes # (Auto) 0.9 0.4-5.4 10 ^3/uL Monocytes # (Auto) 1.1 0-1.3 10 ^3/uL Eosinophils # (Auto) 0 0-0.8 10 ^3/uL Basophils # (Auto) 0 0-0.2 10 ^3/uL Nucleated Red Blood Cells 0.1 % Sodium Level 142 136-145 mmol/L Potassium Level 3.7 3.5-5.1 mmol/L Chloride Level 108 H 98-107 mmol/L Carbon Dioxide Level 25 20-31 mmol/L Anion Gap 9 5-15 Blood Urea Nitrogen 10 9-23 mg/dL Creatinine 0.99 0.550-1.02 mg/dL Glomerular Filtration Rate Calc 62 >90 mL/min BUN/Creatinine Ratio 10.1 10.0-20.0 Serum Glucose 98 74-106 mg/dL Calcium Level 9.7 8.7-10.4 mg/dL B-Type Natriuretic Peptide 77.44 0-100 pg/mL PATIENT: CLARISA DOWNING ACCT: [id number] UNIT: [id number] : 1955 LOC: ER ROOM / BED: / AGE / SEX: 69 / F ADM STATUS: REG ER SERVICE 1621 ORDERING PHYSICIAN: CECI PAEZ PAC PROCEDURE(s): CXRP - CHEST PORTABLE REASON: Shortness a breath ORDER NUMBER(s): [id number], ACCESSION NUMBER(s): [id number] CHEST RADIOGRAPH Indication: Shortness a breath Technique: Single frontal view of the chest was obtained Comparison: None FINDINGS: Lines and Tubes: None Lungs: No focal consolidation. Pleura: No effusion. No pneumothorax. Cardiomediastinal contours: Unremarkable Bones: No acute osseous abnormality. IMPRESSION: No acute cardiopulmonary disease. Assessment/Plan Assessment/Plan Generalized weakness Risk for falls Elevated troponin Plan 1. Admit to telemetry unit 2. Breathing treatment 3. Pain control management 4. Management of fluids and electrolytes 5. Consultation for hospitalist 6. Diagnostic tests chest x-ray 7. DVT prophylaxis-on aspirin 8. Repeat labs CBC, CMP in a.m. 9. Continue with current medical management 10. Treatment plan discussed with patient and RN. Patient verbalized understanding. Plan discussed with: Patient, Other (RN) My Orders Orders - DAVION SANTOS DNP Procedure Category Date Status Time Aspirin Tablet PHA 07/17/24 In Process 10:00 Allergies DEMETRICE 07/16/24 In Process 22:55 Code Status CODE 07/16/24 Transmitted 22:55 Sodium Chloride 0.9% PHA 07/16/24 In Process 23:00 Oxygen Per Hour RT 07/16/24 Transmitted 22:55 Hydrocodone-Acet PHA 07/16/24 In Process 5/325mg Tab (Bennet 23:00 Ondansetron Hcl PHA 07/16/24 In Process (Zofran) 23:00 Docusate Sodium PHA 07/16/24 In Process Capsule (Colace 23:00 Fall Risk Precautions DEMETRICE 07/16/[address] 22:55 Complete Blood Count LAB 07/17/24 Logged 04:00 Comprehensive LAB 07/17/24 Logged Metabolic Panel 04:00 Cardiac DIET 07/17/24 Transmitted Diet-2gna,Lofat,Lochol Breakfast Condition: Serious DEMETRICE 07/16/24 In Process 22:55 Acetaminophen Tablet PHA 07/16/24 In Process (Tylenol Tablet) 23:00 Morphine Sulfate PHA 07/16/24 In Process Injection 23:00 Sequential DEMETRICE 07/16/24 In Process Compression Device Admit ADMIT 07/17/24 Verified 01:31 Nitroglycerin PHA 07/17/24 Verified Sublingual (Ntrostat 01:45 Morphine Sulfate PHA 07/17/24 Verified Injection 01:45 Notify Md Of Changes [facility] 07/17/24 Verified From Base 01:31 Medical Coordinator Pesticide Use For [facility] 07/17/24 Verified 24 Hours 01:31 Emergency Dysrhythmia [facility] 07/17/24 Verified Protocol 01:31 Rhythm Strips Once [facility] 07/17/24 Verified Every Shift 01:31 Oxygen By Nasal RT 07/17/24 Verified Cannula 01:31 Problem List: (1) Generalized weakness (2) Risk for falls (3) Elevated troponin Date of Service: Jul 16, 2024 Billing Provider: DAVION SANTOS DNP Common Visit Codes: [id number] INP/OBS CARE (HIGH) DAVION SANTOS DNP Jul 17, 2024 01:35
[2024-07-17] MEDS ORDERED: MORPHINE SULFATE INJ 2 MG/ml SYRG IV PRN (01:45)
[2024-07-17] MEDS ORDERED: NITROGLYCERIN 0.4 MG SL TAB SL PRN (01:45)
[2024-07-17 05:44] LABS: Basophils # (auto) 0 10 ^3/uL (0-0.2); Basophils % (auto) 0.6 % (0.0-2.0); Eosinophils # (auto) 0 10 ^3/uL (0-0.8); Hematocrit 38.8 % (36.0-46.0); Hemoglobin 13.3 g/dL (12.2-16.2); Lymphocytes % (auto) 15.9 % (10.0-50.0); Mean Corpuscular Hemoglobin 31.5 pg (28.0-32.0); Mean Corpuscular Hgb Conc. 34.4 g/dL (32.0-36.0); Mean Corpuscular Volume 91.6 fL (80.0-100.0); Monocytes % (auto) 15.9 % (0.0-12.0); Neutrophils # (auto) 4.2 10 ^3/uL (1.6-8.6); Neutrophils % (auto) 67.6 % (37.0-80.0); Nucleated Red Blood Cells % 0.2 %; Platelet Count (auto) 169 10^3/uL (140-450); Red Blood Cells 4.24 10^6/uL (4.0-5.20); Red Cell Distribution Width 13.7 % (11.8-14.3); White Blood Cell 6.2 10^3/uL (4.4-10.8)
[2024-07-17 05:51] LABS: Alkaline Phosphatase 53 U/L (46-116); Anion Gap 7 (5-15); BUN/Creatinine Ratio 12.7 (10.0-20.0); Blood Urea Nitrogen 13 mg/dL (9-23); Calcium 9.1 mg/dL (8.7-10.4); Carbon Dioxide 25 mmol/L (20-31); Sodium 140 mmol/L (136-145)
[2024-07-17 05:52] LABS: Bilirubin, Total 0.5 mg/dL (0.2-1.0); Total Protein 6.6 g/dL (5.7-8.2)
[2024-07-17 06:00] LABS: Alanine Aminotransferase 48 U/L (7-40); Aspartate Aminotransferase 75 U/L (13-40); Chloride 108 mmol/L (98-107); Glucose 128 mg/dL (74-106); Potassium 3.3 mmol/L (3.5-5.1)
[2024-07-17 07:12] LABS: Urine Bacteria FEW /hpf (None Seen); Urine Blood Negative /uL (Negative); Urine Clarity Clear (Clear); Urine Color Yellow (Yellow); Urine Hyaline Cast FEW /lpf (0 - 2); Urine Mucus FEW (None Seen); Urine Protein, UAD 1+ (Negative); Urine Specific Gravity 1.034 (1.001-1.035); Urine Squamous Epithelial Cell FEW /hpf (<5); Urine Urobilinogen Normal (Negative); Urine WBC 5 /hpf (0 - 5); Urine pH 5.5 (5.0-9.0)
[2024-07-17 07:46] LABS: Rapid Influenza A Negative (Negative)
[2024-07-17 07:54] LABS: Rapid Influenza B Positive (Negative)
[2024-07-17 07:56] LABS: COVID19 ANTIGEN SOFIA FIA POSITIVE (NEGATIVE)
[2024-07-17 08:30] VITALS: PULSE 84; RESP 16; O2SAT 94
[2024-07-17] MEDS: ASPirin 81 mg TAB PO SCH (10:43)
[2024-07-17] MEDS ORDERED: ACETAMINOPHEN 325 MG TAB PO PRN (13:30)
[2024-07-17] MEDS: POTASSIUM EFFERVESENT TAB 25 MEQ PO ONE (13:46)
[2024-07-17] MEDS: DexAMETHasone 4 MG TAB PO ONE (13:46)
--- NOTE | 2024-07-17 14:16 | DVHPN2 ---
Subjective Patient continues to report having generalized weakness. Reviewed: Care Plan, H&P, Labs, Medications Changes from previous H/P or p: No Changes Eyes: No Pain, No Vision change, No Conjunctivae inflammation, No Eyelid inflammation, No Other, No Redness ENT: No Ear pain, No Ear discharge, No Nose pain, No Nose discharge, No Nose congestion, No Mouth pain, No Mouth swelling, No Throat pain, No Throat swelling, No Other Cardiovascular: No Chest Pain, No Palpitations, No Orthopnea, No Paroxysmal Noc. Dyspnea, No Edema, No Lt Headedness, No Other Respiratory: Cough; No Dry, No Shortness of breath, No SOB with excertion, No Wheezing, No Hemoptysis, No Pleuritic Pain, No Sputum, No Other Gastrointestinal: No Nausea, No Vomiting, No Abdominal Pain, No Diarrhea, No Constipation, No Melena, No Hematochezia, No Other Genitourinary: No Dysuria, No Frequency, No Incontinence, No Hematuria, No Retention, No Other Musculoskeletal: No other, No neck pain, No shoulder pain, No arm pain, No back pain, No hand pain, No leg pain, No foot pain Skin: No Rash, No Lesions, No Jaundice, No Bruising, No Other Objective Vitals Vital Signs Date Time Temp Pulse Resp B/P (MAP) Pulse Ox O2 Delivery O2 Flow Rate FiO2 07/17/24 12:00 86 18 135/54 (81) 95 07/17/24 08:30 Room Air* 0 21 07/17/24 05:22 99.8 99.8 General Appearance: Alert, Oriented X3, No acute distress, mild distress, m oderate distress HEENT: Atraumatic, PERRLA Cardiovascular: Normal S1, Normal S2 Abdomen: Normal bowel sounds, Soft, No tenderness Musculoskeletal: Normal sensory function, Normal motor function Neuro: Normal gait, Normal speech Psych/Mental Status: Mental status NL, Mood NL Medications Current Medications Medications Dose Ordered Sig/Jean Route Start Time Stop Time Status Last Admin Dose Admin Aspirin 81 mg DAILY PO 07/17/24 10:00 07/17/24 10:43 81 MG Sodium Chloride 1,000 ml @ 60 mls/hr [id number] IV 07/16/24 23:00 07/16/24 23:00 60 MLS/HR Acetaminophen/ Hydrocodone Bitart 1 tab Q4HP PRN PO 07/16/24 23:00 Ondansetron HCl 4 mg Q4HP PRN IV 07/16/24 23:00 Docusate Sodium 100 mg BIDPRN PRN PO 07/16/24 23:00 Acetaminophen 650 mg Q6HP PRN PO 07/16/24 23:00 Morphine Sulfate 2 mg Q4HPRN PRN IV 07/16/24 23:00 Nitroglycerin 0.4 mg Q5MINP PRN SL 07/17/24 01:45 Morphine Sulfate 2 mg Q30M PRN IV 07/17/24 01:45 Dexamethasone 6 mg DAILY PO 07/18/24 10:00 Oseltamivir Phosphate 75 mg Q12HR PO 07/17/24 22:00 07/22/24 21:59 Acetaminophen 650 mg Q6HP PRN PO 07/17/24 13:30 Laboratory Results Laboratory Tests 07/17/24 05:17 Chemistry Test 07/16/24 16:18 07/17/24 05:17 Calcium Level 9.7 mg/dL (8.7-10.4) 9.1 mg/dL (8.7-10.4) Albumin 4.0 g/dL (3.2-4.8) Total Protein 6.6 g/dL (5.7-8.2) Coagulation Test 07/17/24 13:40 D-Dimer, Quantitative Pending Cardiac Markers Test 07/16/24 16:18 B-Type Natriuretic Peptide 77.44 pg/mL (0-100) LFT Test 07/17/24 05:17 Alanine Aminotransferase (ALT) 48 U/L (7-40) H Alkaline Phosphatase 53 U/L (46-116) Aspartate Amino Transferase (AST) 75 U/L (13-40) H Total Bilirubin 0.5 mg/dL (0.2-1.0) Urinalysis Test 07/17/24 06:00 Urine Color Yellow (Yellow) Urine Clarity Clear (Clear) Urine pH 5.5 (5.0-9.0) Urine Specific [place] 1.034 (1.001-1.035) Urine Protein 1+ (Negative) H Urine Ketones 2+ (Negative) H Urine Blood Negative /uL (Negative) Urine Nitrite Negative (Negative) Urine Bilirubin Negative (Negative) Urine Urobilinogen Normal mg/dL (Negative) Urine Leukocyte Esterase Negative /uL (Negative) Urine RBC 1 /hpf (0 - 4) Urine WBC 5 /hpf (0 - 5) Urine Squamous Epithelial Cells Few /hpf (<5) Urine Bacteria Few /hpf (None Seen) H Urine Hyaline Casts Few /lpf (0 - 2) Urine Mucus Few (None Seen) Urine Glucose Normal mg/dL (Normal) Labs and/or images reviewed: Labs reviewed by me, Image(s) reviewed by me Assessment/Plan Assessment/Plan Impression: -COVID-19 -influenza A -rheumatoid arthritis -obesity -hypokalemia Plan: -Tamiflu 75 mg p.o. b.i.d. per protocol -start Decadron 6 mg p.o. daily -check D-dimer, ESR, CRP -potassium replacement -repeat labs in a.m. Total time spent with patient discussing and formulating plan of care: 35 minutes. This medical document was created using an electronic medical record system with [employer] dictation system. Although this document has been carefully reviewed, there may still be some phonetic and typographical errors. These areas are purely typographical due to imperfections of the software programs, and do not reflect any compromise in the patient's medical care. Plan discussed with: Patient, Other (RN) My Orders Orders - EZ ÁLVAREZ NP Procedure Category Date Status Time Dexamethasone Tablet PHA 07/18/24 In Process (Decadron Tablet) 10:00 Oseltamivir 75mg PHA 07/17/24 In Process Capsule (Tamiflu 75mg 22:00 Basic Metabolic Panel LAB 07/18/24 Verified 04:00 D-Dimer LAB 07/17/24 In Process 13:18 Erythrocyte LAB 07/17/24 In Process Sedimentation Rate 13:18 C-Reactive Protein LAB 07/17/24 In Process 13:18 Acetaminophen Tablet PHA 07/17/24 In Process (Tylenol Tablet) 13:30 Date of Service: Jul 17, 2024 Billing Provider: EZ ÁLVAREZ NP Common Visit Codes: [id number] INP/OBS CARE(HIGH) EZ ÁLVAREZ NP Jul 17, 2024 14:16
[2024-07-17 15:02] LABS: Erythrocyte Sedimentation Rate 11 mm/hr (0-20)
[2024-07-17 18:33] VITALS: BP 148/75; PULSE 94; RESP 20; TEMP 98.7; O2SAT 94
[2024-07-17 18:41] VITALS: PULSE 83; RESP 16; O2SAT 94
[2024-07-17 20:00] VITALS: PULSE 92
[2024-07-17 21:00] VITALS: BP 121/61; PULSE 81; RESP 20; TEMP 97.9; O2SAT 97
[2024-07-17] MEDS ORDERED: HYDR200T36 PO (21:26)
[2024-07-17] MEDS ORDERED: ESCI20TA PO (21:26)
[2024-07-17] MEDS: OSELTAMIVIR 75 MG CAP PO SCH (21:28)
[2024-07-18] VITALS (8 sets, daily range): BP systolic 127–148; BP diastolic 56–71; PULSE 65–83; RESP 15–20; TEMP 98.2–98.6; O2SAT 94–96
[2024-07-18 07:37] LABS: Chloride 106 mmol/L (98-107); Sodium 141 mmol/L (136-145)
[2024-07-18 07:38] LABS: Anion Gap 10 (5-15); Calcium 9.2 mg/dL (8.7-10.4); Carbon Dioxide 25 mmol/L (20-31)
[2024-07-18 07:43] LABS: BUN/Creatinine Ratio 11.1 (10.0-20.0); Blood Urea Nitrogen 10 mg/dL (9-23); Glucose 98 mg/dL (74-106)
[2024-07-18] MEDS: DexAMETHasone 4 MG TAB PO SCH (10:03)
--- NOTE | 2024-07-18 10:18 | DVHPN2 ---
Subjective The patient is seen and examined at bedside. She said she feels better. She can at least stand up and go to the bedside commode today. She said before she started getting sick she cannot even get up to the bedside commode Reviewed: Care Plan, H&P, Labs, Medications Changes from previous H/P or p: No Changes Eyes: No Pain, No Vision change, No Conjunctivae inflammation, No Eyelid inflammation, No Other, No Redness ENT: No Ear pain, No Ear discharge, No Nose pain, No Nose discharge, No Nose congestion, No Mouth pain, No Mouth swelling, No Throat pain, No Throat swelling, No Other Cardiovascular: No Chest Pain, No Palpitations, No Orthopnea, No Paroxysmal Noc. Dyspnea, No Edema, No Lt Headedness, No Other Respiratory: Cough; No Dry, No Shortness of breath, No SOB with excertion, No Wheezing, No Hemoptysis, No Pleuritic Pain, No Sputum, No Other Gastrointestinal: No Nausea, No Vomiting, No Abdominal Pain, No Diarrhea, No Constipation, No Melena, No Hematochezia, No Other Genitourinary: No Dysuria, No Frequency, No Incontinence, No Hematuria, No Retention, No Other Musculoskeletal: No other, No neck pain, No shoulder pain, No arm pain, No back pain, No hand pain, No leg pain, No foot pain Skin: No Rash, No Lesions, No Jaundice, No Bruising, No Other Objective Vitals Vital Signs Date Time Temp Pulse Resp B/P (MAP) Pulse Ox O2 Delivery O2 Flow Rate FiO2 07/18/24 08:30 98.4 65 15 132/61 (84) 94 98.4 07/18/24 08:02 Room Air* 0 21 Intake/Output Intake and Output 07/18/24 07:00 Intake Total 200 ml Output Total 600 ml Balance -400 ml Intake Oral 200 ml Output Urine Total 600 ml General Appearance: Alert, Oriented X3, No acute distress, mild distress, m oderate distress HEENT: Atraumatic, PERRLA Cardiovascular: Normal S1, Normal S2 Abdomen: Normal bowel sounds, Soft, No tenderness Musculoskeletal: Normal sensory function, Normal motor function Neuro: Normal gait, Normal speech Psych/Mental Status: Mental status NL, Mood NL Medications Current Medications Medications Dose Ordered Sig/Jean Route Start Time Stop Time Status Last Admin Dose Admin Aspirin 81 mg DAILY PO 07/17/24 10:00 07/18/24 10:03 81 MG Sodium Chloride 1,000 ml @ 60 mls/hr [id number] IV 07/16/24 23:00 07/18/24 09:56 60 MLS/HR Acetaminophen/ Hydrocodone Bitart 1 tab Q4HP PRN PO 07/16/24 23:00 Ondansetron HCl 4 mg Q4HP PRN IV 07/16/24 23:00 Docusate Sodium 100 mg BIDPRN PRN PO 07/16/24 23:00 Acetaminophen 650 mg Q6HP PRN PO 07/16/24 23:00 Morphine Sulfate 2 mg Q4HPRN PRN IV 07/16/24 23:00 Nitroglycerin 0.4 mg Q5MINP PRN SL 07/17/24 01:45 Morphine Sulfate 2 mg Q30M PRN IV 07/17/24 01:45 Dexamethasone 6 mg DAILY PO 07/18/24 10:00 07/18/24 10:03 6 MG Oseltamivir Phosphate 75 mg Q12HR PO 07/17/24 22:00 07/22/24 21:59 07/18/24 10:03 75 MG Acetaminophen 650 mg Q6HP PRN PO 07/17/24 13:30 Laboratory Results Laboratory Tests 07/17/24 05:17 07/18/24 05:08 Chemistry Test 07/18/24 05:08 Calcium Level 9.2 mg/dL (8.7-10.4) Coagulation Test 07/17/24 13:40 D-Dimer, Quantitative 0.61 mg/L FEU (0.0-0.49) H Urinalysis Test 07/17/24 06:00 Urine Color Yellow (Yellow) Urine Clarity Clear (Clear) Urine pH 5.5 (5.0-9.0) Urine Specific [place] 1.034 (1.001-1.035) Urine Protein 1+ (Negative) H Urine Ketones 2+ (Negative) H Urine Blood Negative /uL (Negative) Urine Nitrite Negative (Negative) Urine Bilirubin Negative (Negative) Urine Urobilinogen Normal mg/dL (Negative) Urine Leukocyte Esterase Negative /uL (Negative) Urine RBC 1 /hpf (0 - 4) Urine WBC 5 /hpf (0 - 5) Urine Squamous Epithelial Cells Few /hpf (<5) Urine Bacteria Few /hpf (None Seen) H Urine Hyaline Casts Few /lpf (0 - 2) Urine Mucus Few (None Seen) Urine Glucose Normal mg/dL (Normal) Labs and/or images reviewed: Labs reviewed by me Assessment/Plan Assessment/Plan -COVID-19 -influenza A -rheumatoid arthritis -obesity -hypokalemia Plan: -continuing Tamiflu 75 mg p.o. b.i.d. per protocol -continuing Decadron 6 mg p.o. daily --potassium replacement . This medical document was created using an electronic medical record system with [employer] dictation system. Although this document has been carefully reviewed, there may still be some phonetic and typographical errors. These areas are purely typographical due to imperfections of the software programs, and do not reflect any compromise in the patient's medical care. Plan discussed with: Patient Date of Service: Jul 18, 2024 Billing Provider: NACHO BETH MD Common Visit Codes: [id number] INP/OBS CARE(HIGH) NACHO BETH MD Jul 18, 2024 10:18
[2024-07-19] VITALS (8 sets, daily range): BP systolic 106–158; BP diastolic 54–77; PULSE 52–79; RESP 16–20; TEMP 98–99.1; O2SAT 93–97
[2024-07-19] MEDS: guaiFENesin-DM 100/10mg/5ml SYR PO PRN (05:29)
[2024-07-19] MEDS ORDERED: ALBUTEROL SULF HFA 90MCG INH 200DOSE IN PRN (06:15)
--- NOTE | 2024-07-19 10:42 | DVHPN2 ---
Subjective The patient is seen and examined at bedside. The patient is weak today. Reviewed: Care Plan, H&P, Labs, Medications Changes from previous H/P or p: No Changes Eyes: No Pain, No Vision change, No Conjunctivae inflammation, No Eyelid inflammation, No Other, No Redness ENT: No Ear pain, No Ear discharge, No Nose pain, No Nose discharge, No Nose congestion, No Mouth pain, No Mouth swelling, No Throat pain, No Throat swelling, No Other Cardiovascular: No Chest Pain, No Palpitations, No Orthopnea, No Paroxysmal Noc. Dyspnea, No Edema, No Lt Headedness, No Other Respiratory: Cough; No Dry, No Shortness of breath, No SOB with excertion, No Wheezing, No Hemoptysis, No Pleuritic Pain, No Sputum, No Other Gastrointestinal: No Nausea, No Vomiting, No Abdominal Pain, No Diarrhea, No Constipation, No Melena, No Hematochezia, No Other Genitourinary: No Dysuria, No Frequency, No Incontinence, No Hematuria, No Retention, No Other Musculoskeletal: No other, No neck pain, No shoulder pain, No arm pain, No back pain, No hand pain, No leg pain, No foot pain Skin: No Rash, No Lesions, No Jaundice, No Bruising, No Other Objective Vitals Vital Signs Date Time Temp Pulse Resp B/P (MAP) Pulse Ox O2 Delivery O2 Flow Rate FiO2 07/19/24 09:00 98.5 67 16 130/54 (79) 97 98.5 07/18/24 20:30 Room Air* 0 21 Intake/Output Intake and Output 07/19/24 07:00 Intake Total 3150 ml Balance 3150 ml Intake Oral 2400 ml IV Total 750 ml # Voids 7 # Bowel Movements 2 General Appearance: Alert, Oriented X3, No acute distress, mild distress, m oderate distress HEENT: Atraumatic, PERRLA Cardiovascular: Normal S1, Normal S2 Abdomen: Normal bowel sounds, Soft, No tenderness Musculoskeletal: Normal sensory function, Normal motor function Neuro: Normal gait, Normal speech Psych/Mental Status: Mental status NL, Mood NL Medications Current Medications Medications Dose Ordered Sig/Jean Route Start Time Stop Time Status Last Admin Dose Admin Aspirin 81 mg DAILY PO 07/17/24 10:00 07/19/24 09:59 81 MG Sodium Chloride 1,000 ml @ 60 mls/hr [id number] IV 07/16/24 23:00 07/19/24 01:00 60 MLS/HR Acetaminophen/ Hydrocodone Bitart 1 tab Q4HP PRN PO 07/16/24 23:00 Ondansetron HCl 4 mg Q4HP PRN IV 07/16/24 23:00 Docusate Sodium 100 mg BIDPRN PRN PO 07/16/24 23:00 Acetaminophen 650 mg Q6HP PRN PO 07/16/24 23:00 Morphine Sulfate 2 mg Q4HPRN PRN IV 07/16/24 23:00 Nitroglycerin 0.4 mg Q5MINP PRN SL 07/17/24 01:45 Morphine Sulfate 2 mg Q30M PRN IV 07/17/24 01:45 Dexamethasone 6 mg DAILY PO 07/18/24 10:00 07/19/24 09:59 6 MG Oseltamivir Phosphate 75 mg Q12HR PO 07/17/24 22:00 07/22/24 21:59 07/19/24 09:59 75 MG Guaifenesin/ Dextromethorphan 10 ml Q6HPRN PRN PO 07/18/24 11:15 07/19/24 05:29 10 ML Albuterol 90 mcg Q4HPRN PRN IN 07/19/24 06:15 Laboratory Results Laboratory Tests 07/17/24 05:17 07/18/24 05:08 Urinalysis Test 07/17/24 06:00 Urine Color Yellow (Yellow) Urine Clarity Clear (Clear) Urine pH 5.5 (5.0-9.0) Urine Specific [place] 1.034 (1.001-1.035) Urine Protein 1+ (Negative) H Urine Ketones 2+ (Negative) H Urine Blood Negative /uL (Negative) Urine Nitrite Negative (Negative) Urine Bilirubin Negative (Negative) Urine Urobilinogen Normal mg/dL (Negative) Urine Leukocyte Esterase Negative /uL (Negative) Urine RBC 1 /hpf (0 - 4) Urine WBC 5 /hpf (0 - 5) Urine Squamous Epithelial Cells Few /hpf (<5) Urine Bacteria Few /hpf (None Seen) H Urine Hyaline Casts Few /lpf (0 - 2) Urine Mucus Few (None Seen) Urine Glucose Normal mg/dL (Normal) Labs and/or images reviewed: Labs reviewed by me Assessment/Plan Assessment/Plan -COVID-19 -influenza A -rheumatoid arthritis -obesity -hypokalemia Plan: -continuing Tamiflu 75 mg p.o. b.i.d. per protocol -continuing Decadron 6 mg p.o. daily --potassium replacement -Will consult physical therapy to get the patient out of bed and ambulate. . This medical document was created using an electronic medical record system with [employer] computerized dictation system. Although this document has been carefully reviewed, there may still be some phonetic and typographical errors. These areas are purely typographical due to imperfections of the software programs, and do not reflect any compromise in the patient's medical care. Plan discussed with: Patient My Orders Orders - NACHO BETH MD Procedure Category Date Status Time Guaifenesin-Dextromet PHA 07/18/24 In Process Liquid (Robitussin 11:15 Date of Service: Jul 19, 2024 Billing Provider: NACHO BETH MD Common Visit Codes: [id number] INP/OBS CARE(HIGH) NACHO BETH MD Jul 19, 2024 10:42
[2024-07-20] VITALS (10 sets, daily range): BP systolic 102–149; BP diastolic 52–99; PULSE 62–81; RESP 17–22; TEMP 98–99.2; O2SAT 95–98
[2024-07-20] MEDS: HYDROcodone-ACET 5/325MG TAB PO PRN (08:30)
--- NOTE | 2024-07-20 13:44 | DVHPN2 ---
Subjective The patient is seen and examined at bedside. The patient is weak today. Reviewed: Care Plan, H&P, Labs, Medications Changes from previous H/P or p: No Changes Eyes: No Pain, No Vision change, No Conjunctivae inflammation, No Eyelid inflammation, No Other, No Redness ENT: No Ear pain, No Ear discharge, No Nose pain, No Nose discharge, No Nose congestion, No Mouth pain, No Mouth swelling, No Throat pain, No Throat swelling, No Other Cardiovascular: No Chest Pain, No Palpitations, No Orthopnea, No Paroxysmal Noc. Dyspnea, No Edema, No Lt Headedness, No Other Respiratory: Cough; No Dry, No Shortness of breath, No SOB with excertion, No Wheezing, No Hemoptysis, No Pleuritic Pain, No Sputum, No Other Gastrointestinal: No Nausea, No Vomiting, No Abdominal Pain, No Diarrhea, No Constipation, No Melena, No Hematochezia, No Other Genitourinary: No Dysuria, No Frequency, No Incontinence, No Hematuria, No Retention, No Other Musculoskeletal: No other, No neck pain, No shoulder pain, No arm pain, No back pain, No hand pain, No leg pain, No foot pain Skin: No Rash, No Lesions, No Jaundice, No Bruising, No Other Objective Vitals Vital Signs Date Time Temp Pulse Resp B/P (MAP) Pulse Ox O2 Delivery O2 Flow Rate FiO2 07/20/24 10:50 97 Nasal Cannula* 2 28 07/20/24 08:40 99.2 62 17 137/63 (87) 99.2 Intake/Output Intake and Output 07/20/24 07:00 Intake Total 2050 ml Balance 2050 ml Intake Oral 2050 ml # Voids 8 # Bowel Movements 2 General Appearance: Alert, Oriented X3, No acute distress, mild distress, m oderate distress HEENT: Atraumatic, PERRLA Cardiovascular: Normal S1, Normal S2 Abdomen: Normal bowel sounds, Soft, No tenderness Musculoskeletal: Normal sensory function, Normal motor function Neuro: Normal gait, Normal speech Psych/Mental Status: Mental status NL, Mood NL Medications Current Medications Medications Dose Ordered Sig/Jean Route Start Time Stop Time Status Last Admin Dose Admin Aspirin 81 mg DAILY PO 07/17/24 10:00 07/20/24 08:30 81 MG Sodium Chloride 1,000 ml @ 60 mls/hr [id number] IV 07/16/24 23:00 07/19/24 18:00 60 MLS/HR Acetaminophen/ Hydrocodone Bitart 1 tab Q4HP PRN PO 07/16/24 23:00 07/20/24 08:30 1 TAB Ondansetron HCl 4 mg Q4HP PRN IV 07/16/24 23:00 Docusate Sodium 100 mg BIDPRN PRN PO 07/16/24 23:00 Acetaminophen 650 mg Q6HP PRN PO 07/16/24 23:00 Morphine Sulfate 2 mg Q4HPRN PRN IV 07/16/24 23:00 Dexamethasone 6 mg DAILY PO 07/18/24 10:00 07/20/24 08:31 6 MG Oseltamivir Phosphate 75 mg Q12HR PO 07/17/24 22:00 07/22/24 21:59 07/20/24 08:30 75 MG Guaifenesin/ Dextromethorphan 10 ml Q6HPRN PRN PO 07/18/24 11:15 07/20/24 12:17 10 ML Albuterol 90 mcg Q4HPRN PRN IN 07/19/24 06:15 Laboratory Results Laboratory Tests 07/17/24 05:17 07/18/24 05:08 Urinalysis Test 07/17/24 06:00 Urine Color Yellow (Yellow) Urine Clarity Clear (Clear) Urine pH 5.5 (5.0-9.0) Urine Specific [place] 1.034 (1.001-1.035) Urine Protein 1+ (Negative) H Urine Ketones 2+ (Negative) H Urine Blood Negative /uL (Negative) Urine Nitrite Negative (Negative) Urine Bilirubin Negative (Negative) Urine Urobilinogen Normal mg/dL (Negative) Urine Leukocyte Esterase Negative /uL (Negative) Urine RBC 1 /hpf (0 - 4) Urine WBC 5 /hpf (0 - 5) Urine Squamous Epithelial Cells Few /hpf (<5) Urine Bacteria Few /hpf (None Seen) H Urine Hyaline Casts Few /lpf (0 - 2) Urine Mucus Few (None Seen) Urine Glucose Normal mg/dL (Normal) Labs and/or images reviewed: Labs reviewed by me Assessment/Plan Assessment/Plan -COVID-19 -influenza A -rheumatoid arthritis -obesity -hypokalemia Plan: -continuing Tamiflu 75 mg p.o. b.i.d. per protocol -continuing Decadron 6 mg p.o. daily --potassium replacement -DW Physical therapist. The patient able to walk with help of physical therapy and weak. They recommend homehealth for physical therapy at home. I will consult CM for home health for PT Discharge when home health set up done. . This medical document was created using an electronic medical record system with [employer] direct computerized dictation system. Although this document has been carefully reviewed, there may still be some phonetic and typographical errors. These areas are purely typographical due to imperfections of the software programs, and do not reflect any compromise in the patient's medical care. Plan discussed with: Patient Date of Service: Jul 20, 2024 Billing Provider: NACHO BETH MD Common Visit Codes: 35857-[id number] INP/OBS CARE(HIGH) NACHO BETH MD Jul 20, 2024 13:44
[2024-07-20] MEDS ORDERED: AZIT-185 PO (16:40)
[2024-07-20] MEDS ORDERED: METH4PAK PO (16:40)
[2024-07-20] MEDS ORDERED: OSEL75CA5 PO (16:40)
[2024-07-20] MEDS ORDERED: ALBUAER3 IN (16:40)
--- NOTE | 2024-07-20 16:41 | DVHDS2 ---
Discharge Summary Date of Admission Jul 17, 2024 at 01:31 Date of Discharge: Jul 20, 2024 Labs/Diagnostic Data: Laboratory Results Test 07/18/24 05:08 07/17/24 13:40 07/17/24 07:05 07/17/24 06:00 Sodium Level 141 mmol/L (136-145) Potassium Level 4.0 mmol/L (3.5-5.1) Chloride Level 106 mmol/L (98-107) Carbon Dioxide Level 25 mmol/L (20-31) Anion Gap 10 (5-15) Blood Urea Nitrogen 10 mg/dL (9-23) Creatinine 0.90 mg/dL (0.550-1.02) Glomerular Filtration Rate Calc 70 mL/min (>90) BUN/Creatinine Ratio 11.1 (10.0-20.0) Serum Glucose 98 mg/dL (74-106) Calcium Level 9.2 mg/dL (8.7-10.4) Erythrocyte Sedimentation Rate 11 mm/hr (0-20) D-Dimer, Quantitative 0.61 mg/L FEU (0.0-0.49) C-Reactive Protein High Sensitivity 2.42 mg/dL (<1.0) Influenza Type A Antigen Negative (Negative) Influenza Type B Antigen Positive (Negative) SARS-CoV-2 Antigen (Rapid) Positive (NEGATIVE) Urine Color Yellow (Yellow) Urine Clarity Clear (Clear) Urine pH 5.5 (5.0-9.0) Urine Specific [place] 1.034 (1.001-1.035) Urine Protein 1+ (Negative) Urine Ketones 2+ (Negative) Urine Blood Negative /uL (Negative) Urine Nitrite Negative (Negative) Urine Bilirubin Negative (Negative) Urine Urobilinogen Normal mg/dL (Negative) Urine Leukocyte Esterase Negative /uL (Negative) Urine RBC 1 /hpf (0 - 4) Urine WBC 5 /hpf (0 - 5) Urine Squamous Epithelial Cells Few /hpf (<5) Urine Bacteria Few /hpf (None Seen) Urine Hyaline Casts Few /lpf (0 - 2) Urine Mucus Few (None Seen) Urine Glucose Normal mg/dL (Normal) Test 07/17/24 05:17 07/17/24 00:35 07/16/24 16:18 White Blood Count 6.2 10^3/uL (4.4-10.8) Red Blood Count 4.24 10^6/uL (4.0-5.20) Hemoglobin 13.3 g/dL (12.2-16.2) Hematocrit 38.8 % (36.0-46.0) Mean Corpuscular Volume 91.6 fL (80.0-100.0) Mean Corpuscular Hemoglobin 31.5 pg (28.0-32.0) Mean Corpuscular Hemoglobin Concent 34.4 g/dL (32.0-36.0) Red Cell Distribution Width 13.7 % (11.8-14.3) Platelet Count 169 10^3/uL (140-450) Mean Platelet Volume 8.3 fL (6.9-10.8) Neutrophils (%) (Auto) 67.6 % (37.0-80.0) Lymphocytes (%) (Auto) 15.9 % (10.0-50.0) Monocytes (%) (Auto) 15.9 % (0.0-12.0) Eosinophils (%) (Auto) 0.0 % (0.0-7.0) Basophils (%) (Auto) 0.6 % (0.0-2.0) Neutrophils # (Auto) 4.2 10 ^3/uL (1.6-8.6) Lymphocytes # (Auto) 1.0 10 ^3/uL (0.4-5.4) Monocytes # (Auto) 1.0 10 ^3/uL (0-1.3) Eosinophils # (Auto) 0 10 ^3/uL (0-0.8) Basophils # (Auto) 0 10 ^3/uL (0-0.2) Nucleated Red Blood Cells 0.2 % Total Bilirubin 0.5 mg/dL (0.2-1.0) Aspartate Amino Transferase (AST) 75 U/L (13-40) Alanine Aminotransferase (ALT) 48 U/L (7-40) Alkaline Phosphatase 53 U/L (46-116) Total Protein 6.6 g/dL (5.7-8.2) Albumin 4.0 g/dL (3.2-4.8) Troponin I High Sensitivity 27 ng/L (</=34) B-Type Natriuretic Peptide 77.44 pg/mL (0-100) Other Laboratory Tests 07/18/24 05:08 07/17/24 05:17 Final Diagnosis/Problems List Covid 19 and influenza infection Discharge Disposition: Home with Health Services Discharge Instruct/Medications Diet: Cardiac 2g Na,low cholest Activity: Light activity Activity comment: Self isolate x 10 days Follow Up/Referral: pcp 1-2 weeks Medications: see med list Discharge Statement: "Patient was advised to return to the ER or call 911 if any headaches, dizziness, shortness of breath, chest pain, abdominal pain, bleeding, fevers, or worsening of medical condition. Patient was counseled about treatment plan, medications, possible side effects, patientverbalized understanding. All questions were answered to the best of my ability. This discharge took greater then 30 minutes in planning, reviewing documentation, counseling the patient, and discussing with other team members." ASSESSMENT ASSESSMENT Assessment Covid 19 and influenza infection NACHO BETH MD Jul 20, 2024 16:41
[2024-07-21 05:00] VITALS: BP 119/62; PULSE 68; RESP 22; TEMP 98.5; O2SAT 96
[2024-07-21 08:10] VITALS: RESP 20; O2SAT 95
[2024-07-21 08:13] VITALS: BP 123/67; PULSE 59; RESP 16; TEMP 98.8; O2SAT 97
--- NOTE | 2024-07-21 10:17 | DVHDS2 ---
Discharge Summary Date of Admission Jul 17, 2024 at 01:31 Date of Discharge: Jul 21, 2024 Admitting Diagnosis -COVID-19 -influenza A -rheumatoid arthritis -obesity -hypokalemia Labs/Diagnostic Data: Laboratory Results Test 07/18/24 05:08 07/17/24 13:40 07/17/24 07:05 07/17/24 06:00 Sodium Level 141 mmol/L (136-145) Potassium Level 4.0 mmol/L (3.5-5.1) Chloride Level 106 mmol/L (98-107) Carbon Dioxide Level 25 mmol/L (20-31) Anion Gap 10 (5-15) Blood Urea Nitrogen 10 mg/dL (9-23) Creatinine 0.90 mg/dL (0.550-1.02) Glomerular Filtration Rate Calc 70 mL/min (>90) BUN/Creatinine Ratio 11.1 (10.0-20.0) Serum Glucose 98 mg/dL (74-106) Calcium Level 9.2 mg/dL (8.7-10.4) Erythrocyte Sedimentation Rate 11 mm/hr (0-20) D-Dimer, Quantitative 0.61 mg/L FEU (0.0-0.49) C-Reactive Protein High Sensitivity 2.42 mg/dL (<1.0) Influenza Type A Antigen Negative (Negative) Influenza Type B Antigen Positive (Negative) SARS-CoV-2 Antigen (Rapid) Positive (NEGATIVE) Urine Color Yellow (Yellow) Urine Clarity Clear (Clear) Urine pH 5.5 (5.0-9.0) Urine Specific [place] 1.034 (1.001-1.035) Urine Protein 1+ (Negative) Urine Ketones 2+ (Negative) Urine Blood Negative /uL (Negative) Urine Nitrite Negative (Negative) Urine Bilirubin Negative (Negative) Urine Urobilinogen Normal mg/dL (Negative) Urine Leukocyte Esterase Negative /uL (Negative) Urine RBC 1 /hpf (0 - 4) Urine WBC 5 /hpf (0 - 5) Urine Squamous Epithelial Cells Few /hpf (<5) Urine Bacteria Few /hpf (None Seen) Urine Hyaline Casts Few /lpf (0 - 2) Urine Mucus Few (None Seen) Urine Glucose Normal mg/dL (Normal) Test 07/17/24 05:17 07/17/24 00:35 07/16/24 16:18 White Blood Count 6.2 10^3/uL (4.4-10.8) Red Blood Count 4.24 10^6/uL (4.0-5.20) Hemoglobin 13.3 g/dL (12.2-16.2) Hematocrit 38.8 % (36.0-46.0) Mean Corpuscular Volume 91.6 fL (80.0-100.0) Mean Corpuscular Hemoglobin 31.5 pg (28.0-32.0) Mean Corpuscular Hemoglobin Concent 34.4 g/dL (32.0-36.0) Red Cell Distribution Width 13.7 % (11.8-14.3) Platelet Count 169 10^3/uL (140-450) Mean Platelet Volume 8.3 fL (6.9-10.8) Neutrophils (%) (Auto) 67.6 % (37.0-80.0) Lymphocytes (%) (Auto) 15.9 % (10.0-50.0) Monocytes (%) (Auto) 15.9 % (0.0-12.0) Eosinophils (%) (Auto) 0.0 % (0.0-7.0) Basophils (%) (Auto) 0.6 % (0.0-2.0) Neutrophils # (Auto) 4.2 10 ^3/uL (1.6-8.6) Lymphocytes # (Auto) 1.0 10 ^3/uL (0.4-5.4) Monocytes # (Auto) 1.0 10 ^3/uL (0-1.3) Eosinophils # (Auto) 0 10 ^3/uL (0-0.8) Basophils # (Auto) 0 10 ^3/uL (0-0.2) Nucleated Red Blood Cells 0.2 % Total Bilirubin 0.5 mg/dL (0.2-1.0) Aspartate Amino Transferase (AST) 75 U/L (13-40) Alanine Aminotransferase (ALT) 48 U/L (7-40) Alkaline Phosphatase 53 U/L (46-116) Total Protein 6.6 g/dL (5.7-8.2) Albumin 4.0 g/dL (3.2-4.8) Troponin I High Sensitivity 27 ng/L (</=34) B-Type Natriuretic Peptide 77.44 pg/mL (0-100) Other Laboratory Tests 07/18/24 05:08 07/17/24 05:17 Brief Hx & Hospital Course: This is a 69 years old female with past medical history of rheumatoid arthritis and hypertension come to emergency department because of generalized weakness. Patient said the symptoms progressive worse to the point that she can not get up. She also complained of flu-like symptoms, facial pain, headache,, congestive, progressive weakness in her leg. The patient was found to have COVID-19 positive. The patient also have influenza A positive. The patient was given steroid IV, and Tamiflu. Patient subsequently doing better. Patient remained weak. Physical therapist came by and evaluate the patient. Recommend home physical therapy. The patient was discharged yesterday however her insurance did not approve for home PT until today. So the patient will be discharged home today. Activity as tolerated. Diet per home diet. Recommend low-salt low-cholesterol diet. Follow up with primary care physician 1-2 weeks. Physical exam: HEENT: Normocephalic atraumatic pupils equal react to light and accommodation. Extraocular muscles intact, conjunctiva pink, oropharynx moist, no thrush, no exudate. Lymphatic: No lymphadenopathy Cardiovascular exam: S1, S2 was heard. No murmurs, rubs, gallops Lung: Clear on auscultation bilaterally, no wheeze, rale, rhonchi. GI: Abdominal soft, nondistended, nontenderness, positive bowel sounds. Extremity: No crepitus, cyanosis, edema. Pedal pulses present bilateral. Full range of motion. Skin: Normal turgor, no rash. Psych: Alert, oriented x3. Neurology: No focal deficits, cranial nerve II to XII grossly intact. This medical document was created using an electronic medical record system with [employer] direct computerized dictation system. Although this document has been carefully reviewed, there may still be some phonetic and typographical errors. These areas are purely typographical due to imperfections of the software programs, and do not reflect any compromise in the patient's medical care. Condition at Discharge: Stable Final Diagnosis/Problems List -COVID-19 -influenza A -rheumatoid arthritis -obesity -hypokalemia -Deconditionging and weakness. Discharge Disposition: Home Discharge Instruct/Medications Diet: Cardiac 2g Na,low cholest Activity: Light activity Activity comment: Self isolate x 10 days Follow Up/Referral: pcp 1-2 weeks Medications: see med list Discharge Statement: "Patient was advised to return to the ER or call 911 if any headaches, dizziness, shortness of breath, chest pain, abdominal pain, bleeding, fevers, or worsening of medical condition. Patient was counseled about treatment plan, medications, possible side effects, patientverbalized understanding. All questions were answered to the best of my ability. This discharge took greater then 30 minutes in planning, reviewing documentation, counseling the patient, and discussing with other team members." ASSESSMENT ASSESSMENT Assessment Covid 19 and influenza infection Date of Service: Jul 21, 2024 Billing Provider: NACHO EBTH MD Common Visit Codes: 69101-GNL/OBS DISCH DAY >30min NACHO BETH MD Jul 21, 2024 10:16
[2024-07-21 11:52] VITALS: BP 137/80; PULSE 73; RESP 16; TEMP 97.9; O2SAT 95
[2024-07-21 12:16] VITALS: BP 137/80; PULSE 73; RESP 16; TEMP 97.9; O2SAT 95
== END 2024-07-21 13:30 | disposition home health service (06) | DRG 179 ==
LOC: EDUNIT# 16:08 → EDBD 16:08 → ER 16:08 → TELE 07-17 01:31 → TELE-CENTR 07-17 18:42 → CENTRAL 07-19 22:32
PROVIDERS: ADMIT Internal Medicine; ATTEND Internal Medicine
DX: U07.1 COVID-19 (principal); J10.1 Influenza due to other identified influenza virus with other respiratory manifestations; E66.9 Obesity, unspecified; E87.6 Hypokalemia; I10 Essential (primary) hypertension; M06.9 Rheumatoid arthritis, unspecified; Z88.0 Allergy status to penicillin; Z91.81 History of falling; Z90.710 Acquired absence of both cervix and uterus; Z68.33 Body mass index [BMI] 33.0-33.9, adult
CPT/HCPCS: 36415; 71045; 80048; 80053; 81001; 83880; 84484; 85025; 85379; 85652; 86141; 87426; 87804; 93005; 97110; 97116; 97163; 97530; G0378